=== PATIENT | male | born 1960 | race Caucasian/White ===

== ENCOUNTER 2019-02-16 10:32 | Emergency (ER) | payer MEDICAID, MEDICARE ==
[~2019-02-16] VITALS: Ht 172.7 cm; Wt 100.0 kg
[2019-02-16] MEDS ORDERED: METF-839 PO (10:49)
[2019-02-16] MEDS ORDERED: LISI-538 PO (10:49)
[2019-02-16] MEDS ORDERED: LEVO50TA5 PO (10:56)
[2019-02-16] MEDS ORDERED: SERT25TA85 PO (10:56)
[2019-02-16 11:09] LABS: BASO % 0.2 % (0.0-1.0); HEMATOCRIT 46.6 % (42.0-52.0); HEMOGLOBIN 15.5 g/dl (13.5-17.5); LYMPH # 1.5 10^3/uL (1.5-5.0); LYMPH % 12.6 % (24.0-44.0); MEAN CORPUSCULAR HEMOGLOBIN 29.9 pg (27.0-33.0); MEAN CORPUSCULAR HGB CONC 33.3 g/dl (32.0-36.5); MONO # 0.5 10^3/uL (0.0-0.8); MONO % 4.4 % (0.0-5.0); NEUTROPHILS # 9.8 10^3/uL (1.5-8.5); NEUTROPHILS % 82.5 % (36.0-66.0); PLATELET COUNT, AUTOMATED 257 10^3/uL (150-450); RED BLOOD COUNT 5.18 10^6/uL (4.30-6.10); WHITE BLOOD COUNT 11.9 10^3/uL (4.0-10.0)
[2019-02-16] MEDS ORDERED: NS 1,000 ML IV ONE (11:15)
[2019-02-16] MEDS ORDERED: ONDANSETRON 4MG/2ML VIAL (J2405) IV ONE (11:15)
[2019-02-16] MEDS ORDERED: KETOROLAC 30 MG/ML VIAL (J1885) IV ONE (11:30)
[2019-02-16 11:43] LABS: ALBUMIN 4.1 GM/DL (3.2-5.2); ALT/SGPT 26 U/L (12-78); BILIRUBIN,DIRECT 0.3 MG/DL (0.0-0.2); BILIRUBIN,TOTAL 0.8 MG/DL (0.2-1.0); CK-MB VALUE MASS 1.7 NG/ML (<3.6); CPK CREATINE PHOSPHOKINASE 136 U/L (39-308); LIPASE 88 U/L (73-393); MB/CK RELATIVE INDEX 1.25 (< OR =4); TOTAL PROTEIN 7.4 GM/DL (6.4-8.2); TROPONIN I < 0.02 NG/ML (< 0.10)
[2019-02-16] MEDS ORDERED: PROMETHAZINE INJ 25 MG/ML VIAL (J2550) IV ONE (13:45)
[2019-02-16] MEDS ORDERED: HYDROmorphone 2 MG TAB PO ONE (14:15)
--- NOTE | 2019-02-16 15:05 | REP ---
KUB: Single view. History: Abdomen pain. Findings: The bowel gas pattern is normal. There are clips in the right upper quadrant consistent with previous cholecystectomy. Psoas margins are symmetric. No mass, organomegaly, or pathologic calcification is seen. Impression: Normal bowel gas pattern. Clips right upper quadrant. Electronically Signed by Edson Gordon MD 02/16/2019 04:21 P
[2019-02-16 15:18] VITALS: BP 149/82
[2019-02-16 15:51] LABS: AMPHETAMINES LEVEL URINE NEGATIVE (NEGATIVE); BARBITURATES URINE NEGATIVE (NEGATIVE); BENZODIAZEPINES URINE NEGATIVE (NEGATIVE); CANNABINOIDS URINE POSITIVE (NEGATIVE); COCAINE METABOLITE URINE NEGATIVE (NEGATIVE); METHADONE URINE NEGATIVE (NEGATIVE); OPIATES URINE NEGATIVE (NEGATIVE); PHENCYCLIDINE URINE NEGATIVE (NEGATIVE)
== END 2019-02-16 15:31 | disposition home or self-care (01) ==
LOC: M ED 10:32
DX: E86.0 Dehydration (principal); D72.829 Elevated white blood cell count, unspecified; R80.9 Proteinuria, unspecified; Z87.19 Personal history of other diseases of the digestive system; R11.15 Cyclical vomiting syndrome unrelated to migraine; E11.9 Type 2 diabetes mellitus without complications; I10 Essential (primary) hypertension; K21.9 Gastro-esophageal reflux disease without esophagitis; F41.9 Anxiety disorder, unspecified; E03.9 Hypothyroidism, unspecified; F17.210 Nicotine dependence, cigarettes, uncomplicated
CPT/HCPCS: 74018; 80047; 80076; 80307; 81001; 82550; 82553; 83690; 84484; 85025; 96374; 96375; 99284; J1885; J2405

== ENCOUNTER 2022-12-10 11:59 | Emergency (ER) | payer MEDICARE ==
[~2022-12-10] VITALS: Ht 172.7 cm; Wt 90.9 kg
[~2022-12-10 11:59] MED LIST: LEVO50TA5 PO; LISI20TA33 PO; METF-839 PO; SERT25TA85 PO
[2022-12-10] MEDS ORDERED: VICT18IN (12:11)
[2022-12-10] MEDS ORDERED: SERT50TA29 (12:11)
[2022-12-10] MEDS ORDERED: METF500T13 (12:11)
[2022-12-10] MEDS ORDERED: INVO300T (12:11)
[2022-12-10] MEDS ORDERED: ATOR80TA59 (12:11)
[2022-12-10] MEDS ORDERED: AMIT50TA (12:11)
[2022-12-10] MEDS ORDERED: LEVO150T7 (12:11)
[2022-12-10] MEDS ORDERED: TAMS1CAP17 (12:11)
[2022-12-10] MEDS ORDERED: NS 1,000 ML IV ONE (13:35)
[2022-12-10] MEDS ORDERED: KETOROLAC 30 MG/ML 1ML VIAL IV ONE (13:35)
[2022-12-10] MEDS ORDERED: METOCLOPRAMIDE INJ 10MG/2ML VIAL IV ONE (13:35)
[2022-12-10 13:38] LABS: BASO % 0.2 % (0.0-1.0); HEMATOCRIT 46.4 % (42.0-52.0); LYMPH # 1.6 10^3/uL (1.5-5.0); LYMPH % 13.5 % (24.0-44.0); MEAN CORPUSCULAR HEMOGLOBIN 29.8 pg (27.0-33.0); MEAN CORPUSCULAR HGB CONC 32.3 g/dl (32.0-36.5); MEAN CORPUSCULAR VOLUME 92.2 fl (80.0-96.0); MONO # 0.7 10^3/uL (0.0-0.8); NEUTROPHILS # 9.7 10^3/uL (1.5-8.5); NEUTROPHILS % 79.9 % (36.0-66.0); PLATELET COUNT, AUTOMATED 332 10^3/uL (150-450); RED BLOOD COUNT 5.03 10^6/uL (4.30-6.10); WHITE BLOOD COUNT 12.1 10^3/uL (4.0-10.0)
[2022-12-10 13:59] LABS: ALBUMIN 4.9 G/DL (3.2-5.2); ALKALINE PHOSPHATASE 77 U/L (46-116); ALT/SGPT 37 U/L (7.0-40); AST/SGOT 67 U/L (<34); BILIRUBIN,DIRECT 0.3 MG/DL (<0.4); BILIRUBIN,TOTAL 1.3 MG/DL (0.3-1.2); LIPASE 37 U/L (12-53); TOTAL PROTEIN 8.6 G/DL (5.7-8.2)
[2022-12-10 14:42] LABS: BLOOD UREA NITROGEN 32 MG/DL (9-23); CARBON DIOXIDE LEVEL 25 MMOL/L (20-31); CHLORIDE LEVEL 95 MMOL/L (98-107); CREATININE FOR GFR 0.77 MG/DL (0.70-1.30); GLOMERULAR FILTRATION RATE > 60.0 (>49); GLUCOSE, FASTING 156 MG/DL (74-106); POTASSIUM SERUM 5.6 MMOL/L (3.5-5.1); SODIUM LEVEL 135 MMOL/L (136-145)
[2022-12-10 16:54] VITALS: BP 127/60; TEMP 98.2; O2SAT 96
== END 2022-12-10 17:26 | disposition home or self-care (01) ==
LOC: M ED 11:59
DX: R11.15 Cyclical vomiting syndrome unrelated to migraine (principal); E11.9 Type 2 diabetes mellitus without complications; I10 Essential (primary) hypertension; E78.5 Hyperlipidemia, unspecified; E03.9 Hypothyroidism, unspecified; C61 Malignant neoplasm of prostate; R10.9 Unspecified abdominal pain; F17.219 Nicotine dependence, cigarettes, with unspecified nicotine-induced disorders; Z91.040 Latex allergy status; Z79.899 Other long term (current) drug therapy; Z79.890 Hormone replacement therapy; Z79.84 Long term (current) use of oral hypoglycemic drugs; Z79.85 Long-term (current) use of injectable non-insulin antidiabetic drugs
CPT/HCPCS: 80047; 80048; 80076; 83690; 85025; 96374; 96375; 99284; J1885; J2765